=== PATIENT | female | born 1995 | race Caucasian/White ===

== ENCOUNTER → 2024-10-25 13:00 | Outpatient (REF) | payer OTHER, SELFPAY | LOC: HWRAD 13:00 | PROVIDERS: ATTENDING PHYSICIAN Advanced Practice Midwife; FAMILY PHYSICIAN Registered Nurse | DX: R10.2 Pelvic and perineal pain (principal) | CPT/HCPCS: 76830; 76856 ==

== ENCOUNTER → 2025-03-15 11:35 | Outpatient (REF) | payer OTHER, SELFPAY | LOC: HWRAD 11:35 | PROVIDERS: ATTENDING PHYSICIAN Registered Nurse | DX: J32.0 Chronic maxillary sinusitis (principal) | CPT/HCPCS: 70486 ==

== ENCOUNTER 2025-05-10 06:30 | Day surgery (SDC) | payer OTHER, SELFPAY ==
[2025-05-10 08:15] VITALS: BMI 29.2
[2025-05-10 08:16] VITALS: BP 141/85; BMI 29.2
[2025-05-10] MEDS: NORMOSOL-R/PLASMALYTE-A 1000 IV (08:26)
[2025-05-10] MEDS: TRANSDERM-SCOP 1 PATCH TRANSDERM (08:41)
[2025-05-10 10:03] VITALS: BP 126/86; BP 141/85
[2025-05-10 10:15] VITALS: BP 131/88
[2025-05-10 10:30] VITALS: BP 118/83
[2025-05-10 10:45] VITALS: BP 119/81
[2025-05-10 11:15] VITALS: BP 120/86
[2025-05-10] MEDS: TYLENOL 650 MG PO (11:27)
== END 2025-05-10 11:55 | disposition home or self-care (01) ==
LOC: SDS 06:30
PROVIDERS: ATTENDING PHYSICIAN Otolaryngology
DX: J34.3 Hypertrophy of nasal turbinates (principal)
CPT/HCPCS: 30140